=== PATIENT | female | born 1985 | race American Indian/Alaskan Native ===

== ENCOUNTER 2016-05-02 20:23 | Emergency (ER) | payer SELFPAY ==
[2016-05-02 20:32] VITALS: BP 128/65; PULSE 81; RESP 16; TEMP 98.5; O2SAT 100
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
--- NOTE | 2016-05-03 09:33 | RAD ---
PROCEDURE: Radiographs of the Right Shoulder HISTORY: r/o fracture COMPARISON: No prior. FINDINGS: BONES: Normal. No fracture. JOINTS: Normal. Glenohumeral and acromioclavicular joints preserved. No osteoarthritis. SOFT TISSUES: Normal. OTHER FINDINGS: None. IMPRESSION: Normal radiographs of the right shoulder.
--- NOTE | 2016-05-03 09:39 | RAD ---
PROCEDURE: Radiographs of the Lumbar Spine. HISTORY: back pain COMPARISON: No prior. FINDINGS: BONES: No acute compression fractures no retropulsed fragments. Minor chronic anterior stature loss of the T11 segment with small marginal anterior superior osteophyte formation. Changes likely of degenerative in origin. . DISC SPACES: Unremarkable. OTHER FINDINGS: Two ring-like metallic densities overlying the lateral margins of the true pelvis likely represent gromets related to clothing artifact IMPRESSION: No acute compression fractures. Minor chronic anterior stature loss T11 segment likely degenerative in origin as above. If symptoms persist or occult fracture suspected clinically recommend followup CT scan
--- NOTE | 2016-05-03 09:42 | RAD ---
PROCEDURE: Cervical spine dated 05/02/2016 HISTORY: pain COMPARISON: No prior study available for comparison TECHNIQUE: AP lateral open-mouth and extended murillo views of the cervical spine performed. Note that the study is slightly limited due to partial obscuration of the odontoid by overlying incisor teeth and occiput in the open-mouth projection however portion of the odontoid is visible in the extended murillo view. FINDINGS: No acute compression fractures nor retropulsed fragments. Vertebral bodies exhibit normal stature of. There is slight reversal of the normal upper cervical lordosis possibly due to muscle spasm. Vertebral bodies otherwise exhibit normal alignment. Facets normally aligned. Small marginal anterolateral osteophyte formation seen at the C6-C7 and to a lesser degree C5-C6 and less of the C4-C5 levels. Prevertebral soft tissues unremarkable. Suspect forme fruste bilateral cervical ribs . IMPRESSION: No acute fracture seen. Mild reversal of the normal upper cervical lordosis possibly due to muscle spasm. If symptoms persist or occult fracture suspected clinically recommend followup CT scan and or MRI.
== END 2016-05-02 23:13 | disposition home or self-care (01) ==
LOC: H.ER 20:23
DX: S16.1XXA Strain of muscle, fascia and tendon at neck level, initial encounter (principal); S39.012A Strain of muscle, fascia and tendon of lower back, initial encounter; S46.911A Strain of unspecified muscle, fascia and tendon at shoulder and upper arm level, right arm, initial encounter; V43.52XA Car driver injured in collision with other type car in traffic accident, initial encounter; Y92.410 Unspecified street and highway as the place of occurrence of the external cause

== ENCOUNTER 2016-07-04 20:07 | Emergency (ER) | payer MEDICAID ==
[2016-07-04 20:07] VITALS: BMI 31.2
[2016-07-04 21:04] VITALS: BP 127/69; PULSE 94; RESP 16; TEMP 98; O2SAT 100
--- NOTE | 2016-07-04 22:16 | ED PDOC ---
HPI: General Adult Time Seen by Provider: 07/04/16 21:37 Chief Complaint (Nursing): Abdominal Pain Chief Complaint (Provider): ENT problem History Per: Patient History/Exam Limitations: no limitations Onset/Duration Of Symptoms: Days (3x days) Have you had recent travel within the past 21 days to any of the following countries: [place], [place], [place] or [place]?: No Current Symptoms Are (Timing): Still Present Severity: Moderate Additional Complaint(s): 31 year old female with no pertinent medical history presents to the ED with complaints of a sore throat that started 3x days ago. She reports that she has difficulty swallowing. She denies having a fever and chills. She denies having any recent sick contacts or travel. Patient also reports having constipation and very hard and dry stool which has been causing rectal irritation and sometimes bleeding. PMD: [facility] in [place] Past Medical History Reviewed: Historical Data, Nursing Documentation, Vital Signs Vital Signs: Last Vital Signs Temp 98.0 F 07/04/16 21:01 Pulse 94 H 07/04/16 21:01 Resp 16 07/04/16 21:01 BP 127/69 07/04/16 21:01 Pulse Ox 100 07/04/16 22:20 - Medical History PMH: No Chronic Diseases - Surgical History Surgical History: - Family History Family History: States: Unknown Family Hx - Social History Alcohol: None Drugs: Denies - Home Medications Home Medications: Ambulatory Orders Medication Instructions Recorded Nitrofurantoin Macrocrystals 100 mg PO BID #14 cap 06/11/16 [Macrobid] Ibuprofen Susp [Motrin Oral Susp] 600 mg PO Q6 #1 bottle 07/04/16 Polyethylene Glycol 3350 [Miralax] 17 gm PO DAILY #5 powd.pack 07/04/16 - Allergies Allergies/Adverse Reactions: Allergies Allergy/AdvReac Type Severity Reaction Status Date / Time No Known Allergies Allergy Verified 07/04/16 21:00 Review of Systems Constitutional: Negative for: Fever, Chills ENT: Positive for: Throat Pain Gastrointestinal: Positive for: Constipation Physical Exam - Reviewed Nursing Documentation Reviewed: Yes Vital Signs Reviewed: Yes - Physical Exam Appears: Positive for: Well, Non-toxic, No Acute Distress Head Exam: Positive for: ATRAUMATIC, NORMOCEPHALIC Skin: Positive for: Normal Color, Warm, Dry ENT: Positive for: Pharyngeal Erythema. Negative for: Tonsillar Exudate Neck: Positive for: Normal Cardiovascular/Chest: Positive for: Regular Rate, Rhythm Respiratory: Positive for: Normal Breath Sounds. Negative for: Respiratory Distress Gastrointestinal/Abdominal: Positive for: Normal Exam Neurologic/Psych: Positive for: Alert, Oriented (3x) - ECG O2 Sat by Pulse Oximetry: 100 (RA) Pulse Ox Interpretation: Normal Medical Decision Making Medical Decision Makin:37 Initial impression: 31 year old female with a sore throat and constipation. Differential diagnoses include but are not limited to pharyngitis and constipation. Initial plan: * upreg * decadron 1mg PO * motrin tab 600mg PO * rapid strep group A antigen * reevaluation 11PM: Pt. feeling better, instructed to f/u w/ PMD or return to ER for worsening or concerning symptoms. Scribe Attestation: Documented by Swapna Shelley, acting as a scribe for Sergio Rogers MD. Provider Scribe Attestation: All medical record entries made by the Scribe were at my direction and personally dictated by me. I have reviewed the chart and agree that the record accurately reflects my personal performance of the history, physical exam, medical decision making, and the department course for this patient. I have also personally directed, reviewed, and agree with the discharge instructions and disposition. Disposition - Clinical Impression Clinical Impression: Pharyngitis, Constipation - Disposition Referrals: [facility] [Outside] Disposition Time: 23:00 Condition: STABLE Prescriptions: Ibuprofen Susp [Motrin Oral Susp] 600 mg PO Q6 #1 bottle Polyethylene Glycol 3350 [Miralax] 17 gm PO DAILY #5 powd.pack Instructions: Constipation (ED), Pharyngitis (ED)
[2016-07-04] MEDS ORDERED: Dexamethasone elixir 0.5 MG/5 ML UDC PO STA (22:27)
== END 2016-07-04 23:14 | disposition home or self-care (01) ==
LOC: H.ER 20:07
DX: K59.00 Constipation, unspecified (principal); J02.9 Acute pharyngitis, unspecified

== ENCOUNTER 2017-05-04 18:22 | Emergency (ER) | payer MEDICAID ==
[2017-05-04 18:22] VITALS: BMI 31.2
[2017-05-04 18:37] VITALS: BP 108/69; PULSE 101; RESP 16; TEMP 99.3; O2SAT 99
--- NOTE | 2017-05-04 18:43 | ED PDOC ---
HPI: Back Time Seen by Provider: 05/04/17 18:43 Chief Complaint (Nursing): Back Pain Chief Complaint (Provider): back pain History Per: Patient Additional Complaint(s): 32-year-old female presents to emergency department with lower back pain that started yesterday. Patient states that she did not sustain any fall or injury. Patient took 1 tab valium 5 mg PO at home but this did not help the pain. She denies radiation of pain to lower extremities. Patient denies any bowel or bladder dysfunction. She rates pain as 9/10 upon arrival. PMD: [facility] [place] Past Medical History Reviewed: Historical Data, Nursing Documentation, Vital Signs Vital Signs: Last Vital Signs Temp 99.3 F 05/04/17 18:35 Pulse 101 H 05/04/17 18:35 Resp 16 05/04/17 18:35 BP 108/69 05/04/17 18:35 Pulse Ox 99 05/04/17 18:35 - Medical History PMH: No Chronic Diseases - Surgical History Surgical History: - Family History Family History: States: No Known Family Hx - Living Arrangements Living Arrangements: With Family - Social History Current smoker - smoking cessation education provided: No Drugs: Denies - Home Medications Home Medications: Ambulatory Orders Medication Instructions Recorded Nitrofurantoin Macrocrystals 100 mg PO BID #14 cap 06/11/16 [Macrobid] Ibuprofen Susp [Motrin Oral Susp] 600 mg PO Q6 #1 bottle 07/04/16 Polyethylene Glycol 3350 [Miralax] 17 gm PO DAILY #5 powd.pack 07/04/16 Naproxen 1 tab PO BID PRN #14 tab 12/15/16 diaZEpam [Valium] 5 mg PO Q6 PRN #5 tab 12/15/16 - Allergies Allergies/Adverse Reactions: Allergies Allergy/AdvReac Type Severity Reaction Status Date / Time No Known Allergies Allergy Verified 05/04/17 18:35 Review of Systems ROS Statement: Except As Marked, All Systems Reviewed And Found Negative Constitutional: Negative for: Fever, Chills Cardiovascular: Negative for: Chest Pain Respiratory: Negative for: Cough Gastrointestinal: Negative for: Nausea, Vomiting Genitourinary Female: Negative for: Dysuria, Frequency, Incontinence Musculoskeletal: Positive for: Back Pain Neurological: Negative for: Weakness, Numbness Physical Exam - Reviewed Nursing Documentation Reviewed: Yes Vital Signs Reviewed: Yes - Physical Exam Appears: Positive for: Well, Non-toxic, No Acute Distress Skin: Negative for: Rash Cardiovascular/Chest: Positive for: Regular Rate, Rhythm Respiratory: Positive for: Normal Breath Sounds Gastrointestinal/Abdominal: Positive for: Soft. Negative for: Tenderness, Distended, Guarding Back: Positive for: Vertebral Tenderness (tenderness across lower lumbar region with palpable muscle spasm, patient is able to heel and toe walk, negative bilateral straight leg raise) Extremity: Positive for: Normal ROM Neurologic/Psych: Positive for: Alert, Oriented - Laboratory Results Urine POC: Negative Urine dip results: Positive for: Leukocyte Esterase (trace), Blood (small). Negative for: Nitrate, Ketones, Glucose, Bilirubin, Protein - ECG O2 Sat by Pulse Oximetry: 99 Pulse Ox Interpretation: Normal Medical Decision Making Medical Decision Makin32 year old with low back pain Plan: Urine dip Urine test UA/Urine culture LS Spine x-ray IM toradol IM solumedrol Disposition - Clinical Impression Clinical Impression: Back pain - Patient ED Disposition Is Patient to be Admitted: Transfer of Care - Disposition Disposition: Transfer of Care Disposition Time: 20:00 Condition: STABLE Forms: [employer] (Cameroonian) Patient Signed Over To: Hamilton Martinez Handoff Comments: Signed out pending diagnostic testing results and final dispo
--- NOTE | 2017-05-04 20:27 | ED PDOC ---
- Laboratory Results Urine POC: Negative - ECG O2 Sat by Pulse Oximetry: 99 Medical Decision Making Medical Decision Making: lumbar xray (-) UA (+) leukocytes will treat for UTI and refer to PMD for back pain Disposition Doctor Will See Patient In The: Office Counseled Patient/Family Regarding: Studies Performed, Diagnosis, Need For Followup, Rx Given - Clinical Impression Clinical Impression: Back pain, Urinary tract bacterial infections - POA Present On Arrival: None - Disposition Disposition: Routine/Home Disposition Time: 22:48 Condition: STABLE Additional Instructions: follow up with PMD for back pain consultation take all antibiotics given as prescribed Prescriptions: Meloxicam [Mobic] 15 mg PO DAILY #30 tab Sulfamethoxazole/Trimethoprim [Bactrim 200mg-40mg/5mL Susp] 20 ml PO BID #400 ml Instructions: Urinary Tract Infection, Adult (DC) Forms: [employer] ([place])
[2017-05-04 20:34] LABS: SQUAMOUS EPITHIAL 13 /hpf (0-5); URINE BILIRUBIN NEGATIVE (NEGATIVE); URINE BLOOD SMALL (NEGATIVE); URINE CLARITY CLOUDY (Clear); URINE COLOR YELLOW (YELLOW); URINE GLUCOSE (UA) NEG (Normal); URINE LEUKOCYTE ESTERASE SMALL Leu/uL (Negative); URINE PROTEIN 30 mg/dL (NEGATIVE); URINE UROBILINOGEN 0.2-1.0 mg/dL (0.2-1.0)
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
== END 2017-05-04 23:12 | disposition home or self-care (01) ==
LOC: H.ER 18:22
DX: N39.0 Urinary tract infection, site not specified (principal); M54.9 Dorsalgia, unspecified
CPT/HCPCS: 72100; 81003; 81025; 87086; 96372; 99283; J2930

== ENCOUNTER 2018-02-01 15:44 | Emergency (ER) | payer MEDICAID ==
[2018-02-01 15:44] VITALS: BMI 31.2
[2018-02-01 15:50] VITALS: RESP 16
[2018-02-01] MEDS ORDERED: Lactated Ringer's 1,000 ML IV STA (16:13)
[2018-02-01 16:36] LABS: BASO # 0.1 K/uL (0.0-0.2); BASO % 0.9 % (0.0-2.0); EOS % 0.5 % (0.0-4.0); HEMOGLOBIN 11.9 g/dL (12.0-16.0); LYMPH # 2.1 K/uL (1.0-4.3); MEAN CELL VOLUME 87.9 fl (81.0-99.0); MEAN CORPUSCULAR HEMOGLOBIN 28.7 pg (27.0-31.0); MEAN CORPUSCULAR HGB CONC 32.6 g/dL (33.0-37.0); MEAN PLATELET VOLUME 8.8 fl (7.2-11.7); MONO # 0.7 K/uL (0.0-0.8); MONO % 9.8 % (0.0-10.0); NEUT # 4.3 K/uL (1.8-7.0); NEUT % 59.8 % (50.0-75.0); NRBC % 0.1 % (0.0-0.0); RBC 4.15 Mil/uL (3.80-5.20); RED CELL DISTRIBUTION WIDTH 15.1 % (11.5-14.5); WHITE BLOOD COUNT 7.2 K/uL (4.8-10.8)
--- NOTE | 2018-02-01 16:55 | ED PDOC ---
HPI: Abdomen Time Seen by Provider: 02/01/18 15:57 Chief Complaint (Nursing): Abdominal Pain Chief Complaint (Provider): Abdominal pain History Per: Patient History/Exam Limitations: no limitations Onset/Duration Of Symptoms: Days Outside of [place] travel?: No Current Symptoms Are (Timing): Still Present Additional History Per: Patient Additional Complaint(s): 32yo female, at 7 weeks, LMP on 12/01, comes to ER reporting vaginal spotting x 2 days with associated abdominal crampting. Patient reports 1 week ago, she had a half day of vaginal bleeding and some spotting last week as well. Patient states she confirmed her this past Friday. She denies any nausea or vomiting. Patient states she does not take vitamins and has just started her care at [facility]. Otherwise, patient offers no a dditional medical complaints. Patient states her blood type is A+ PMD: Dr. Sparrow Abnormal Vaginal Bleeding: Yes Last Menstral Period: December 01, 2017 : 2 Para: 1 Past Medical History Reviewed: Historical Data, Nursing Documentation, Vital Signs Vital Signs: Last Vital Signs Temp 98.5 F 02/01/18 15:50 Pulse 78 02/01/18 15:50 Resp 16 02/01/18 15:50 BP 120/69 02/01/18 15:50 Pulse Ox 100 02/01/18 15:50 - Medical History PMH: No Chronic Diseases - Surgical History Surgical History: - Family History Family History: States: No Known Family Hx - Living Arrangements Living Arrangements: With Family - Social History Current smoker - smoking cessation education provided: No Alcohol: None Drugs: Denies - Home Medications Home Medications: Ambulatory Orders Medication Instructions Recorded Nitrofurantoin Macrocrystals 100 mg PO BID #14 cap 06/11/16 [Macrobid] Polyethylene Glycol 3350 [Miralax] 17 gm PO DAILY #5 powd.pack 07/04/16 RX: Ibuprofen Susp [Motrin Oral 600 mg PO Q6 #1 bottle 07/04/16 Susp] RX: Naproxen 1 tab PO BID PRN #14 tab 12/15/16 diaZEpam [Valium] 5 mg PO Q6 PRN #5 tab 12/15/16 Meloxicam [Mobic] 15 mg PO DAILY #30 tab 05/04/17 Sulfamethoxazole/Trimethoprim 20 ml PO BID #400 ml 05/04/17 [Bactrim 200mg-40mg/5mL Susp] - Allergies Allergies/Adverse Reactions: Allergies Allergy/AdvReac Type Severity Reaction Status Date / Time No Known Allergies Allergy Verified 05/04/17 18:35 Review of Systems ROS Statement: Except As Marked, All Systems Reviewed And Found Negative (per HPI) Gastrointestinal: Positive for: Abdominal Pain. Negative for: Nausea, Vomiting Genitourinary Female: Positive for: Vaginal Discharge, Vaginal Bleeding Physical Exam - Reviewed Nursing Documentation Reviewed: Yes Vital Signs Reviewed: Yes - Physical Exam Appears: Positive for: Well, Non-toxic, No Acute Distress Head Exam: Positive for: ATRAUMATIC, NORMOCEPHALIC Skin: Positive for: Warm, Dry Cardiovascular/Chest: Positive for: Regular Rate, Rhythm. Negative for: Murmur Respiratory: Positive for: Normal Breath Sounds. Negative for: Respiratory Distress Gastrointestinal/Abdominal: Positive for: Soft, Tenderness (mild suprapubic tenderness). Negative for: Mass, Distended, Guarding, Rebound Extremity: Positive for: Normal ROM. Negative for: Deformity Neurologic/Psych: Positive for: Alert. Negative for: Motor/Sensory Deficits - Laboratory Results Result Diagrams: 02/01/18 16:31 - ECG O2 Sat by Pulse Oximetry: 100 (RA) Pulse Ox Interpretation: Normal Medical Decision Making Medical Decision Making: Impression: 32yo female with vaginal bleeding and abdominal pain in setting of early Differential: Including but not limited to UTI, cystitis, threatened , ectopic Plan: -- Labs -- US OB Transvaginal -- IV Fluids -- Chlamydia/GC RNA, TMA 1822 Urinalysis reviewed, no clinically significant findings. 1830 US OB FINDINGS: ENDOMETRIUM: Intrauterine gestational sac and pole identified. UTERUS/CERVIX: The uterus contains an intrauterine gestational sac and pole. Gestational sac measures measures 15 mm corresponding to 5 weeks and 6 days. Small yolk sac identified. pole measures 0.4 cm corresponding to 6 weeks and 1 day. cardiac activity is identified. RIGHT OVARY: Normal Doppler flow. No abnormal mass. LEFT OVARY: Normal Doppler flow. Left ovarian cyst 1.3 cm. FREE FLUID: No free fluid. IMPRESSION: Single live intrauterine gestation of approximately 6 weeks and 1 day. cardiac activity identified. Small left ovarian cyst. Clinical correlation and follow-up study recommended. 1857 Patient informed of US findings, instructed to follow up with OBGYN in 2-3 days. Patient instructed to return to ER if symptoms worsen, if she is using more than 1 pad an hour, or other symptoms. Stable for discharge home. __ Scribe Attestation: Documented by Mavis Calderon, acting as a scribe for Diane Salvador MD. Provider Scribe Attestation: All medical record entries made by the Scribe were at my direction and personally dictated by me. I have reviewed the chart and agree that the record accurately reflects my personal performance of the history, physical exam, medical decision making, and the department course for this patient. I have also personally directed, reviewed, and agree with the discharge instructions and disposition. Disposition - Clinical Impression Clinical Impression: Threatened miscarriage Counseled Patient/Family Regarding: Studies Performed, Diagnosis, Need For Fol lowup - Disposition Referrals: [facility] [Provider Group] (CALL TOMORROW TO SETUP FOLLOW UP APPOINTMENT WITHIN A WEEK) Disposition: Routine/Home Disposition Time: 18:57 Condition: STABLE Additional Instructions: RETURN TO ER FOR: BLEEDING MORE THAN A PAD AN HOUR, SEVERE PAIN, FAINTING OR NEAR FAINTING, OR ANY OTHER WORRISOME SYMPTOMS OTHERWISE FOLLOWUP WITH YOUR STOPER. Instructions: Threatened Miscarriage (DC)
[2018-02-01 18:12] LABS: SQUAMOUS EPITHIAL 27 /hpf (0-5); URINE BACTERIA RARE (<OCC); URINE BILIRUBIN NEGATIVE (NEGATIVE); URINE BLOOD MODERATE (NEGATIVE); URINE CLARITY CLOUDY (Clear); URINE COLOR YELLOW (YELLOW); URINE GLUCOSE (UA) NEG (NEGATIVE); URINE LEUKOCYTE ESTERASE TRACE Leu/uL (Negative); URINE PROTEIN NEGATIVE (NEGATIVE)
[2018-02-01 18:53] VITALS: BP 101/81; PULSE 76; TEMP 98.6
[2018-02-01 18:58] VITALS: O2SAT 100
--- NOTE | 2018-02-02 09:12 | US ---
Date of service: 02/01/2018 PROCEDURE: OB Pelvic Ultrasound HISTORY: vb preg r/o ectopic 7 wks COMPARISON: None available. FINDINGS: UTERUS: Single Live intrauterine gestation. Yolk sac is visualized. CRL measures 0.04 cm equivalent to 6 weeks and 1 day of gestational age. Gestational sac diameter measures 1.5 cm equivalent to 5 weeks and 6 days of gestational age. age (Ultrasound estimated): 6 weeks and 0 day Date of delivery (Ultrasound estimated) : 09/27/2018 Heart rate: 123 bpm. Laura-gestational hemorrhage: None. Uterus measures 11.1 x 6.9 x 7.8 cm. No mass CERVIX: Long and closed. No cervical abnormality seen. RIGHT OVARY: Not visualized. LEFT OVARY: Measures 4.1 x 2.0 x 3.1 cm. No mass. Normal flow. There is a 1.4 x 0.7 x 1.3 cm corpus luteum cyst. FREE FLUID: None. OTHER FINDINGS: None. IMPRESSION: Single live intrauterine gestation with mean gestational age of 6 weeks and 0 day. The estimated date of delivery by ultrasound is 09/27/2018. A preliminary report was provided by [facility].
== END 2018-02-01 18:56 | disposition home or self-care (01) ==
LOC: H.ER 15:44 → SUPCPDRO 15:44 → H.ER 18:56
DX: O20.0 Threatened abortion (principal); Z3A.01 Less than 8 weeks gestation of pregnancy; N83.202 Unspecified ovarian cyst, left side
CPT/HCPCS: 76817; 81003; 84702; 85025; 87086; 87491; 87591; 96360; 99284; J7120

== ENCOUNTER 2018-02-17 10:43 | Emergency (ER) | payer MEDICAID ==
[2018-02-17 10:43] VITALS: BMI 31.2
--- NOTE | 2018-02-17 10:58 | ED PDOC ---
HPI: Female Pain Time Seen by Provider: 02/17/18 10:51 Chief Complaint (Nursing): Abdominal Pain History Per: Patient Onset/Duration Of Symptoms: Days (2) Current Symptoms Are (Timing): Better Severity: Moderate Quality Of Discomfort: Cramping Additional Complaint(s): Vaginal bleeding 2 days ago but stopped, still having lower abd cramping and nausea. No vomiting. Approx 8 weeks . Past Medical History Vital Signs: Last Vital Signs Temp 98.7 F 02/17/18 10:49 Pulse 94 H 02/17/18 10:49 Resp 16 02/17/18 10:49 BP 109/71 02/17/18 10:49 Pulse Ox 100 02/17/18 10:49 - Medical History PMH: No Chronic Diseases - Surgical History Surgical History: - Family History Family History: States: Unknown Family Hx - Home Medications Home Medications: Ambulatory Orders Medication Instructions Recorded Nitrofurantoin Macrocrystals 100 mg PO BID #14 cap 06/11/16 [Macrobid] Ibuprofen Susp [Motrin Oral Susp] 600 mg PO Q6 #1 bottle 07/04/16 Polyethylene Glycol 3350 [Miralax] 17 gm PO DAILY #5 powd.pack 07/04/16 Naproxen 1 tab PO BID PRN #14 tab 12/15/16 diaZEpam [Valium] 5 mg PO Q6 PRN #5 tab 12/15/16 Meloxicam [Mobic] 15 mg PO DAILY #30 tab 05/04/17 Sulfamethoxazole/Trimethoprim 20 ml PO BID #400 ml 05/04/17 [Bactrim 200mg-40mg/5mL Susp] - Allergies Allergies/Adverse Reactions: Allergies Allergy/AdvReac Type Severity Reaction Status Date / Time No Known Allergies Allergy Verified 05/04/17 18:35 Review of Systems Constitutional: Negative for: Fever Gastrointestinal: Positive for: Nausea, Abdominal Pain Genitourinary Female: Positive for: Vaginal Bleeding Musculoskeletal: Positive for: Back Pain Physical Exam - Physical Exam Appears: Positive for: Non-toxic, No Acute Distress Skin: Positive for: Normal Color, Warm, DRY Gastrointestinal/Abdominal: Positive for: Bowel Sounds, Soft, Tenderness Pelvic Exam: Positive for: External Exam Normal. Negative for: Blood, Mass, Tender Adnexa, Tender Uterus - Laboratory Results Result Diagrams: 02/17/18 11:22 02/17/18 11:22 - ECG O2 Sat by Pulse Oximetry: 100 Disposition - Clinical Impression Clinical Impression: Threatened miscarriage - Patient ED Disposition Is Patient to be Admitted: No - Disposition Referrals: Mario Hayden [Outside] Disposition: Routine/Home Disposition Time: 13:13 Condition: FAIR Instructions: Threatened Miscarriage Forms: [facility] (Namibian), [facility] ED School/Work Excuse
[2018-02-17 11:43] LABS: BASO % 0.6 % (0.0-2.0); EOS % 0.5 % (0.0-4.0); HEMOGLOBIN 11.3 g/dL (12.0-16.0); LYMPH # 1.3 K/uL (1.0-4.3); LYMPH % 26.1 % (20.0-40.0); MEAN CELL VOLUME 88.6 fl (81.0-99.0); MEAN CORPUSCULAR HEMOGLOBIN 28.9 pg (27.0-31.0); MEAN CORPUSCULAR HGB CONC 32.6 g/dL (33.0-37.0); MEAN PLATELET VOLUME 8.7 fl (7.2-11.7); MONO # 0.5 K/uL (0.0-0.8); NEUT # 3.1 K/uL (1.8-7.0); NEUT % 62.8 % (50.0-75.0); NRBC % 0.1 % (0.0-0.0); RBC 3.9 Mil/uL (3.80-5.20); RED CELL DISTRIBUTION WIDTH 14.5 % (11.5-14.5); WHITE BLOOD COUNT 4.9 K/uL (4.8-10.8)
[2018-02-17 12:01] LABS: ALB/GLOB RATIO 1.1 (1.0-2.1); ALBUMIN 3.9 g/dL (3.5-5.0); ALT/SGPT 17 U/L (9-52); AST/SGOT 14 U/L (14-36); BLOOD UREA NITROGEN 8 mg/dl (7-17); CALCIUM 9.2 mg/dL (8.4-10.2); GFR NON-AFRICAN AMERICAN > 60
[2018-02-17 14:44] VITALS: BP 101/52; PULSE 75; RESP 18; TEMP 98.5; O2SAT 99
--- NOTE | 2018-02-17 15:34 | US ---
Date of service: 02/17/2018 HISTORY: r/o ectopic COMPARISON: None available. TECHNIQUE: Transvaginal ultrasonography of appearance is performed using longitudinal and transverse projections with Doppler techniques also utilized. Correlation made prior breast ultrasound 02/01/2018. FINDINGS: UTERUS: Measures 12.9 x 8.8 x 7.9 cm. Uterus is expectantly enlarged. No fibroid or other mass lesion seen. ENDOMETRIUM: Within the endometrial cavity is a gestational sac identified measuring 2.65 cm. Yolk sac measures 0.37 cm and pole measures 2.16 cm corresponding to 8 weeks 6 days gestational age with cardiac activity now identified at 162 beats per minute. Prior sonographic age was 6 weeks 1 day indicating normal interval growth currently. No definite evidence to suggest decidual hemorrhage at this time. CERVIX: No cervical abnormality identified. Cervical length 5.0 cm, closed internal os. RIGHT OVARY: Measures 4.3 x 3.0 x 2.3 cm. Potential complex cysts or solid nodule measuring 1.9 x 2.1 x 1.5 cm normal flow. LEFT OVARY: Measures 5.0 x 4.4 x 1.9 cm. No solid mass. Normal flow. FREE FLUID: No significant free fluid noted. OTHER FINDINGS: No apparent ectopic gestation though this would be highly unlikely given intrauterine gestation identified. IMPRESSION: Single viable intrauterine gestation is identified now with yolk sac male who is mean crown-rump length measurement indicates a week 6 day gestational age, registering normal interval growth compared prior transvaginal ultrasound 02/01/2018. No related decidual hemorrhage demonstrated. Clinical and potential sonographic follow-up advised. Probable corpus luteum cyst right ovary 1.9 cm versus potential other complex cyst or solid nodule. Bilateral ovaries appear mildly enlarged. No sonographic evidence to suggest torsion bilaterally. No ectopic gestation identified.
== END 2018-02-17 14:15 | disposition home or self-care (01) ==
LOC: H.ER 10:43
DX: O20.0 Threatened abortion (principal); Z3A.08 8 weeks gestation of pregnancy

== ENCOUNTER 2018-03-17 19:04 | Emergency (ER) | payer MEDICAID ==
[2018-03-17 19:04] VITALS: BMI 31.2
[2018-03-17] MEDS ORDERED: Dextrose 5%/0.45% NS 1,000 ML IV SCH (20:15)
[2018-03-17 20:49] LABS: BASO % 0.3 % (0.0-2.0); EOS % 0.3 % (0.0-4.0); HEMOGLOBIN 11.3 g/dL (12.0-16.0); LYMPH # 0.6 K/uL (1.0-4.3); LYMPH % 15.8 % (20.0-40.0); MEAN CELL VOLUME 87.8 fl (81.0-99.0); MEAN CORPUSCULAR HEMOGLOBIN 29.6 pg (27.0-31.0); MEAN CORPUSCULAR HGB CONC 33.7 g/dL (33.0-37.0); MONO # 0.6 K/uL (0.0-0.8); MONO % 15.9 % (0.0-10.0); NEUT # 2.4 K/uL (1.8-7.0); NEUT % 67.7 % (50.0-75.0); NRBC % 0.2 % (0.0-0.0); RBC 3.84 Mil/uL (3.80-5.20); RED CELL DISTRIBUTION WIDTH 14.5 % (11.5-14.5); WHITE BLOOD COUNT 3.6 K/uL (4.8-10.8)
[2018-03-17 21:09] LABS: BLOOD UREA NITROGEN 5 mg/dl (7-17); CALCIUM 9.4 mg/dL (8.4-10.2); GFR NON-AFRICAN AMERICAN > 60
--- NOTE | 2018-03-17 21:10 | ED PDOC ---
HPI: General Adult Time Seen by Provider: 03/17/18 19:49 Chief Complaint (Nursing): Abdominal Pain Chief Complaint (Provider): Lightheaded, fever History Per: Patient History/Exam Limitations: no limitations Additional Complaint(s): 32yo female, otherwise well, approximately 13 weeks , comes to ER stating she had a fever of 103 F today. She also reports feeling lightheaded and as if "was going to pass out." She also reports a momentary episode of abdominal pain, which has now resolved. Patient has associated chills and bodyaches; she denies urinary symptom or vaginal bleeding. No additional complaints. No flu vaccine this year. Patient has a scheduled follow up appt with OBGYN next week. PMD: Dr. Alvarado Past Medical History Reviewed: Historical Data, Nursing Documentation, Vital Signs Vital Signs: Last Vital Signs Temp 99.7 F H 03/17/18 19:07 Pulse 112 H 03/17/18 19:07 Resp 18 03/17/18 19:07 BP 109/58 L 03/17/18 19:07 Pulse Ox 98 03/17/18 19:07 - Medical History PMH: No Chronic Diseases - Surgical History Surgical History: - Family History Family History: States: No Known Family Hx - Home Medications Home Medications: Ambulatory Orders Medication Instructions Recorded Nitrofurantoin Macrocrystals 100 mg PO BID #14 cap 06/11/16 [Macrobid] Ibuprofen Susp [Motrin Oral Susp] 600 mg PO Q6 #1 bottle 07/04/16 Polyethylene Glycol 3350 [Miralax] 17 gm PO DAILY #5 powd.pack 07/04/16 Naproxen 1 tab PO BID PRN #14 tab 12/15/16 diaZEpam [Valium] 5 mg PO Q6 PRN #5 tab 12/15/16 Meloxicam [Mobic] 15 mg PO DAILY #30 tab 05/04/17 Sulfamethoxazole/Trimethoprim 20 ml PO BID #400 ml 05/04/17 [Bactrim 200mg-40mg/5mL Susp] Acetaminophen [Pain Reliever] 500 mg PO Q4 #30 tablet 03/17/18 Oseltamivir Phosphate [Tamiflu] 75 mg PO BID 5 Days #10 capsule 03/17/18 - Allergies Allergies/Adverse Reactions: Allergies Allergy/AdvReac Type Severity Reaction Status Date / Time No Known Allergies Allergy Verified 03/17/18 19:06 Review of Systems ROS Statement: Except As Marked, All Systems Reviewed And Found Negative Constitutional: Positive for: Fever, Malaise (bodyaches) Cardiovascular: Negative for: Chest Pain Respiratory: Negative for: Shortness of Breath Gastrointestinal: Positive for: Abdominal Pain (1 episode, now resolved) Genitourinary Female: Negative for: Dysuria, Vaginal Discharge, Vaginal Bleeding Physical Exam - Reviewed Nursing Documentation Reviewed: Yes Vital Signs Reviewed: Yes - Physical Exam Appears: Positive for: No Acute Distress Head Exam: Positive for: ATRAUMATIC, NORMAL INSPECTION, NORMOCEPHALIC Skin: Positive for: Normal Color Eye Exam: Positive for: Normal appearance ENT: Negative for: Pharyngeal Erythema Neck: Positive for: Normal, Supple Cardiovascular/Chest: Positive for: Regular Rate, Rhythm Respiratory: Positive for: Normal Breath Sounds Gastrointestinal/Abdominal: Positive for: Normal Exam, Soft, Other (gravid uterus). Negative for: Tenderness Back: Positive for: Normal Inspection Extremity: Positive for: Normal ROM Neurologic/Psych: Positive for: Alert, Oriented. Negative for: Motor/Sensory Deficits - Laboratory Results Result Diagrams: 03/17/18 20:20 03/17/18 20:20 - ECG O2 Sat by Pulse Oximetry: 98 (RA) Pulse Ox Interpretation: Normal Medical Decision Making Medical Decision Making: Assessment: Well appearing female with c/o fever, bodyaches and chills Likely influenza Plan: -- Labs -- IV Fluids -- Tylenol 650mg PO 2303 Labs reviewed, no acute findings. Patient to be discharged home with prescription for tamiflu; instructed to follow up with OBGYN as scheduled Patient informed to return to ER if symptoms worsen or new symptoms arise. Scribe Attestation: Documented by Mavis Calderon acting as a scribe for Sergio Rogers MD. Provider Attestation: All medical record entries made by the Scribe were at my direction and personally dictated by me. I have reviewed the chart and agree that the record accurately reflects my personal performance of the history, physical exam, medical decision making, and the department course for this patient. I have also personally directed, reviewed, and agree with the discharge instructions and disposition. Disposition - Clinical Impression Clinical Impression: Influenza-like illness - Patient ED Disposition Is Patient to be Admitted: No - Disposition Referrals: Manuel Alvarado MD [Family Provider] - Disposition: Routine/Home Disposition Time: 23:10 Condition: STABLE Prescriptions: Acetaminophen [Pain Reliever] 500 mg PO Q4 #30 tablet Oseltamivir Phosphate [Tamiflu] 75 mg PO BID 5 Days #10 capsule Instructions: Flu Forms: [facility] (Mexican)
[2018-03-17 23:27] VITALS: BP 93/52; PULSE 83; RESP 17; TEMP 98.4; O2SAT 99
== END 2018-03-17 23:35 | disposition home or self-care (01) ==
LOC: H.ER 19:04
DX: O26.891 Other specified pregnancy related conditions, first trimester (principal); J11.1 Influenza due to unidentified influenza virus with other respiratory manifestations; Z3A.13 13 weeks gestation of pregnancy
CPT/HCPCS: 80048; 85025; 96360; 96361; 99283; J7042

== ENCOUNTER 2018-03-24 17:05 | Emergency (ER) | payer MEDICAID ==
[2018-03-24 17:05] VITALS: BMI 31.2
[2018-03-24 17:08] VITALS: RESP 16
--- NOTE | 2018-03-24 17:46 | ED PDOC ---
HPI: Abdomen Time Seen by Provider: 03/24/18 17:12 Chief Complaint (Nursing): Abdominal Pain Chief Complaint (Provider): Abdominal pain History Per: Patient History/Exam Limitations: no limitations Onset/Duration Of Symptoms: Persistent Outside of [place] travel?: No Current Symptoms Are (Timing): Still Present Associated Symptoms: denies: Fever, Chills, Vomiting, Diarrhea Additional History Per: Patient Additional Complaint(s): 33yo female, currently , comes to ER reporting right lower quadrant pain, present since January 2018. Patient denies any associated vaginal bleeding, urinary symptom or nausea, vomiting, diarrhea. Patient reports she is mostly concerned as she has not felt any movement during this . Prior records reviewed, patient was recently seen in this ER twice for similar complaints, has had US showing normal progression of . No additional complaints. PMD: Dr. Alvarado Past Medical History Reviewed: Historical Data, Nursing Documentation, Vital Signs Vital Signs: Last Vital Signs Temp 98.1 F 03/24/18 17:06 Pulse 84 03/24/18 17:34 Resp 16 03/24/18 17:06 BP 113/69 03/24/18 17:06 Pulse Ox 99 03/24/18 17:06 - Medical History PMH: No Chronic Diseases Denies: Chronic Kidney Disease - Surgical History Surgical History: - Family History Family History: States: Unknown Family Hx - Home Medications Home Medications: Ambulatory Orders Medication Instructions Recorded Nitrofurantoin Macrocrystals 100 mg PO BID #14 cap 06/11/16 [Macrobid] Ibuprofen Susp [Motrin Oral Susp] 600 mg PO Q6 #1 bottle 07/04/16 Polyethylene Glycol 3350 [Miralax] 17 gm PO DAILY #5 powd.pack 07/04/16 Naproxen 1 tab PO BID PRN #14 tab 12/15/16 diaZEpam [Valium] 5 mg PO Q6 PRN #5 tab 12/15/16 Meloxicam [Mobic] 15 mg PO DAILY #30 tab 05/04/17 Sulfamethoxazole/Trimethoprim 20 ml PO BID #400 ml 05/04/17 [Bactrim 200mg-40mg/5mL Susp] Acetaminophen [Pain Reliever] 500 mg PO Q4 #30 tablet 03/17/18 Oseltamivir Phosphate [Tamiflu] 75 mg PO BID 5 Days #10 capsule 03/17/18 Nitrofurantoin Macrocrystals 100 mg PO BID #14 cap 03/24/18 [Macrobid] - Allergies Allergies/Adverse Reactions: Allergies Allergy/AdvReac Type Severity Reaction Status Date / Time No Known Allergies Allergy Verified 03/24/18 17:06 Review of Systems ROS Statement: Except As Marked, All Systems Reviewed And Found Negative Constitutional: Negative for: Fever, Chills Gastrointestinal: Positive for: Abdominal Pain. Negative for: Nausea, Vomiting, Diarrhea Genitourinary Female: Negative for: Dysuria, Hematuria, Vaginal Discharge, Vaginal Bleeding, Pelvic Pain Physical Exam - Reviewed Nursing Documentation Reviewed: Yes Vital Signs Reviewed: Yes - Physical Exam Appears: Positive for: No Acute Distress Head Exam: Positive for: ATRAUMATIC, NORMAL INSPECTION, NORMOCEPHALIC Skin: Positive for: Normal Color Eye Exam: Positive for: Normal appearance Neck: Positive for: Supple Cardiovascular/Chest: Positive for: Regular Rate, Rhythm Respiratory: Positive for: Normal Breath Sounds. Negative for: Respiratory Distress Gastrointestinal/Abdominal: Positive for: Soft, Other (gravid abdomen, approximately 13-14 weeks). Negative for: Tenderness, Mass, Guarding, Rebound Back: Positive for: Normal Inspection. Negative for: L CVA Tenderness, R CVA Tenderness Extremity: Positive for: Normal ROM Neurologic/Psych: Positive for: Alert, Oriented. Negative for: Motor/Sensory Deficits - Laboratory Results Result Diagrams: 03/24/18 18:06 - ECG O2 Sat by Pulse Oximetry: 99 (RA) Pulse Ox Interpretation: Normal Medical Decision Making Medical Decision [place] female with right lower quadrant pain x months unlikely appendicitis as symptoms have been ongoing since Jan 2018 Patient has no urinary symptom or vaginal bleeding; pain most likely due to round ligament pain Plan: -- Labs -- Urinalysis -- US pelvis 1844 US pelvis FINDINGS: Variable presentation. Anterior/fundal placenta. No evidence of abruption or previa Gestational age derived from LMP 15 weeks 1 day. MICHAEL 09/14/2018.. Gestational age derived from the following biometric parameters 13 weeks 6 days. MICHAEL 09/23/2018. Biparietal diameter 2.46 cm Head circumference 8.86 cm Abdominal circumference 7.00 cm Femur length 1.51 cm Estimated weight 88.2 g Calculated cardiac rate 147 beats per min. Closed cervix measuring 4.36 cm IMPRESSION: Thirteen weeks 6 days live intrauterine gestation. Gestational concordance noted. Adequate interval progression compared to prior studies. 1855 Patient informed of US findings. UA reviewed, patient with a UTI; given prescription for Macrobid. Patient informed to follow up with OBGYN and to return to ER if symptoms worsen or new symptoms arise. Stable for discharge home. Scribe Attestation: Documented by Mavis Calderon acting as a scribe for Garth Hunt MD. Provider Attestation: All medical record entries made by the Scribe were at my direction and personally dictated by me. I have reviewed the chart and agree that the record accurately reflects my personal performance of the history, physical exam, medical decision making, and the department course for this patient. I have also personally directed, reviewed, and agree with the discharge instructions and disposition. Disposition - Clinical Impression Clinical Impression: Urinary tract infection, Round ligament pain - Patient ED Disposition Is Patient to be Admitted: No Counseled Patient/Family Regarding: Studies Performed, Diagnosis, Need For Followup, Rx Given - Disposition Disposition: Routine/Home Disposition Time: 18:52 Condition: STABLE Prescriptions: Nitrofurantoin Macrocrystals [Macrobid] 100 mg PO BID #14 cap Instructions: Urinary Tract Infections in Adults, Round Ligament Pain Forms: [employer] (Frisian)
[2018-03-24 18:10] LABS: BASO % 0.7 % (0.0-2.0); EOS % 0.5 % (0.0-4.0); HEMOGLOBIN 11.6 g/dL (12.0-16.0); LYMPH # 1.3 K/uL (1.0-4.3); MEAN CELL VOLUME 87.1 fl (81.0-99.0); MEAN CORPUSCULAR HEMOGLOBIN 29.6 pg (27.0-31.0); MEAN PLATELET VOLUME 9.1 fl (7.2-11.7); MONO # 0.5 K/uL (0.0-0.8); MONO % 7.8 % (0.0-10.0); NEUT # 4.5 K/uL (1.8-7.0); RBC 3.91 Mil/uL (3.80-5.20); RED CELL DISTRIBUTION WIDTH 14.6 % (11.5-14.5); WHITE BLOOD COUNT 6.3 K/uL (4.8-10.8)
[2018-03-24 18:21] LABS: URINE AMORPHOUS SEDIMENT FEW /ul (<OCC); URINE BACTERIA RARE (<OCC); URINE BILIRUBIN NEGATIVE (NEGATIVE); URINE BLOOD NEGATIVE (NEGATIVE); URINE CLARITY TURBID (Clear); URINE COLOR YELLOW (YELLOW); URINE GLUCOSE (UA) NEG (NEGATIVE); URINE LEUKOCYTE ESTERASE TRACE Leu/uL (Negative); URINE PROTEIN NEGATIVE (NEGATIVE)
--- NOTE | 2018-03-24 18:47 | US ---
Date of service: 03/24/2018 PROCEDURE: Obstetrical ultrasound, limited HISTORY: Right sided pain COMPARISON: 02/01/2018 and 02/17/2018 serial obstetrical ultrasound studies TECHNIQUE: Standard protocol for this study/examination. FINDINGS: Variable presentation. Anterior/fundal placenta. No evidence of abruption or previa Gestational age derived from LMP 15 weeks 1 day. MICHAEL 09/14/2018.. Gestational age derived from the following biometric parameters 13 weeks 6 days. MICHAEL 09/23/2018. Biparietal diameter 2.46 cm Head circumference 8.86 cm Abdominal circumference 7.00 cm Femur length 1.51 cm Estimated weight 88.2 g Calculated cardiac rate 147 beats per min. Closed cervix measuring 4.36 cm IMPRESSION: Thirteen weeks 6 days live intrauterine gestation. Gestational concordance noted. Adequate interval progression compared to prior studies.
[2018-03-24 19:34] VITALS: BP 102/61; PULSE 72; TEMP 98.8; O2SAT 100
== END 2018-03-24 19:33 | disposition home or self-care (01) ==
LOC: H.ER 17:05
DX: O23.41 Unspecified infection of urinary tract in pregnancy, first trimester (principal); Z3A.13 13 weeks gestation of pregnancy; O26.899 Other specified pregnancy related conditions, unspecified trimester

== ENCOUNTER 2018-06-16 12:05 | Emergency (ER) | payer MEDICAID ==
[2018-06-16 13:00] VITALS: BMI 30.9
[2018-06-16 13:35] LABS: SQUAMOUS EPITHIAL 1 /hpf (0-5); URINE BACTERIA RARE (<OCC); URINE BILIRUBIN NEGATIVE (NEGATIVE); URINE BLOOD NEGATIVE (NEGATIVE); URINE CLARITY SLIGHTY-CLOUDY (Clear); URINE COLOR YELLOW (YELLOW); URINE GLUCOSE (UA) NEG (NEGATIVE); URINE LEUKOCYTE ESTERASE SMALL Leu/uL (Negative); URINE PROTEIN 30 mg/dL (NEGATIVE); URINE UROBILINOGEN 0.2-1.0 mg/dL (0.2-1.0)
[2018-06-16 18:49] VITALS: BP 128/69; PULSE 89; TEMP 98.4; O2SAT 100
--- NOTE | 2018-06-17 07:16 | OBHP ---
Datetime: 06/16/2018 16:40 FHR - Baseline A Provider: 140 Vital Signs Provider: Reviewed; Within Normal Limits NICHD Variability Prov Fetus A: Moderate 6-25bpm NICHD Accel Fetus A IP Provider: 10X10 FHR Category Provider Fetus A: Category I Datetime: 06/16/2018 12:51 IP Adm Impression: , intrauterine IP Admit Plan: Observation/Evaluation Admit Comment, IP Provider: 33 y/o, , 25.6 weeks based on LMP with MICHAEL 09/23/18 presents to [facility] complaining of decreased movements and abdominal cramping. Last movment was yesterday noo n and patient reports not feeling any movements since than. Abdominal pain is in upper and lowe r abdomen, cramping, /, continuous which is not alleviating. Denies VB, LOF, urinary symptoms, lily k pain, CP, SOB, headache, vision change or pedal edema. care and course: [facility]. Patient reports threatened with vaginal bleeding for which she came to ER in 02/2018, was kept on bed rest. Not sure about last US date. Does not have records with her. Last Apt May 24, 2018 and next appointment on 06/22/18. Denies any other complications in this . OBHx: G1: CS at term, CS due to failed induction and decels, 2009 G2: Current PMHx: Denies PSHx: CS in 2009 Allergies: NKDA Meds: PNVs Social Hx: Denies ETOH/smoking/drugs F/H: Denies PE Gen: NAD Chest: RRR, S1S2 present Lungs: CTAB, No wheezing Abdomen: Gravid, Mild uterine fundus and lower abdomninal tenderness Back: No CVA or paraspinal tenderness Ext: No pedal edema Neuro: AAO x 3, CN 2-12 grossly intact. SSE: Thick Whitish discharge noted, No active vaginal bleeding. A/P: 33 y/o, , 25.6 weeks based on LMP with MICHAEL 09/23/18 and abdominal cramping - [place]: No CTx - FHR: 150 baseline, Moderate variability - UA stat - PO fluid intake - SSE: No vaginal bleeding noted. - Monitor FHR and toco. OB Hospitalist on-call - Pt seen and agree with ntoe....chack UA. Pt given script for Cephalexin 500mg po TID - will call pt with results. Pt felt no CTX, SROM or VB...now she has +FM MAHNDO Case discussed with Dr. Gibran Lopes MD, PGY1 Extremities - PN: Normal Back - PN: Normal Breast - PN: Not Done Lungs - PN: Normal Heart - PN: Normal Thyroid - PN: Not Done Neurologic - PN: Not Done HEENT - PN: Normal General - PN: Normal Contraction Comments Provider: None Comments, ACOG Physical Exam: Gen: NAD Chest: RRR, S1S2 present Lungs: CTAB, No wheezing Abdomen: Gravid, Mild uterine fundus and lower abdomninal tenderness Back: No CVA or paraspinal tenderness Ext: No pedal edema Neuro: AAO x 3, CN 2-12 grossly intact. SSE: Thick Whitish discharge noted, No active vaginal bleeding. Pool Provider: Negative EGA AdmitDate IP: 25.6 IP Chief Complaint: Decreased movement; Maternal discomfort NICHD Decel Fetus A IP Provider: None Dilatation, Provider: 0 Genitourinary Exam: Normal DTRs - PN: Not Done
--- NOTE | 2018-06-17 07:16 | OBPN ---
Datetime: 06/16/2018 16:40 IP Progress Impression Other: UTI IP Progress Impression: Normal progression of labor IP Progress Plan: Discharge FHR - Baseline A Provider: 140 IP Progress Note Comment: 33 y/o , 25.6 weeks presented with decreased movements and lower abdominal cramping. VSS NAD UA positive for Small Leukocytes estrace Patient given script and informed to take antibiotics and follow up with provider on 06/22. case discussed with Dr. Leary. Devang Lopes MD, PGY1 OB Hospitalist on-call... aware of above MAHNDO Vital Signs Provider: Reviewed; Within Normal Limits NICHD Accel Fetus A IP Provider: 10X10 FHR Category Provider Fetus A: Category I NICHD Variability Prov Fetus A: Moderate 6-25bpm Datetime: 06/16/2018 12:51 Pool Provider: Negative Contraction Comments Provider: None Dilatation, Provider: 0 NICHD Decel Fetus A IP Provider: None
--- NOTE | 2018-06-17 07:20 | OBDCSUM ---
Datetime: 06/16/2018 13:40 Discharge Diagnosis, Provider: False Labor - Undelivered Discharge Diagnosis Prov Other: UTI
== END 2018-06-16 13:40 | disposition home or self-care (01) ==
LOC: H.EROB2 12:05
DX: O36.8131 Decreased fetal movements, third trimester, fetus 1 (principal); Z3A.25 25 weeks gestation of pregnancy; O26.92 Pregnancy related conditions, unspecified, second trimester; R10.2 Pelvic and perineal pain